=== PATIENT | male | born 1985 | race Caucasian/White ===

== ENCOUNTER 2019-05-28 15:31 | Inpatient (IN) | payer OTHER ==
[2019-05-28 18:07] VITALS: BMI 24.4
--- NOTE | 2019-05-28 19:53 | HP ---
CIWA Score Nausea/Vomitin-No Nausea/No Vomiting Muscle Tremors: 4-Moderate,w/Arms Extend Anxiety: 2 Agitation: 2 Paroxysmal Sweats: 3 (Increased facial moisture) Orientation: 0-Oriented Tacttile Disturbances: 0-None Auditory Disturbances: 0-None Visual Disturbances: 2-Mild Sensitivity Headache: 2-Mild (Frontal) CIWA-Ar Total Score: 15 - Admission Criteria OAS Guidelines: Admission for Medically Managed Detox: Requires at least one of the followin. CIWA greater than 12 2. Seizures within the past 24 hours 3. Delirium tremens within the past 24 hours 4. Hallucinations within the past 24 hours 5. Acute intervention needed for co occurring medical disorder 6. Acute intervention needed for co occurring psychiatric disorder 7. Severe withdrawal that cannot be handled at a lower level of care (continued vomiting, continued diarrhea, abnormal vital signs) requiring intravenous medication and/or fluids 8. Patient presents the following: CIWA greater than 12 Admission Criteria Met: Admission criteria met Admission ROS [facility] Chief Complaint: "Here for detox to get your life together" Allergies/Adverse Reactions: Allergies Allergy/AdvReac Type Severity Reaction Status Date / Time ketorolac [From Toradol] Allergy Severe Rash Verified 05/28/19 17:44 CRAWFISH Allergy Mild Rash Uncoded 05/28/19 17:44 History of Present Illness: 34 yo presents w/ alcohol withdrawal, seeking detox. ARYA: 0.0 UTox: +THC/BZO/BUP Denies sizures, blackouts, overdose. Alcohol use began at age 13. Current use 1-2 pints liquor x 2 years. Heroin use began at age 13. Last relapse 2 months ago. Patient is on Suboxone 8 mg Po TID. Patient states the current prescription for Subutex is as a replacement for lost meds and will be going back on Suboxone. . Marijuana/K-2 use began at age 11. Smokes daily. Nicotine use began at age 11. Smokes 2 PPD. Unable to chew gum. Encouraged smoking cessation upon discharge. PMHx: Denies MHHx: Panic attacks (Stress reduction exercises) ; Bipolar (Takes Seroquel); Denies thoughts of harming self or others. Last saw MH Provider - 05/20/19 SHx: Homeless. Unemployed. (On SSD/SSI). Denies legal issues. Patient Name: Chilango Napier Date: 1985 Address: [address] [place] [address] Sex: Male Rx Written Rx Dispensed Drug Quantity Days Supply Prescriber Name 05/21/2019 05/21/2019 buprenorphine 8 mg tablet sl 21 7 Tara Dias E 05/19/2019 05/19/2019 tramadol hcl 50 mg tablet 15 5 Leonard Mclaughlin 05/16/2019 05/16/2019 buprenorphine-naloxone 8-2 mg sl film 63 21 Ba [place] 05/09/2019 05/09/2019 buprenorphine-naloxone 8-2 mg sl film 21 7 Ba [place] 05/08/2019 05/08/2019 buprenorphine-naloxone 8-2 mg sl film 4 4 Columba Steven H () 04/27/2019 04/30/2019 buprenorphine-naloxone 8-2 mg sl film 9 3 [facility] 04/28/2019 04/28/2019 buprenorphine-naloxone 8-2 mg sl film 9 3 Bari Norris MD 04/10/2019 04/11/2019 buprenorphine-naloxone 8-2 mg sl film 24 8 Leif Almendarez 03/31/2019 04/07/2019 buprenorphine-naloxone 8-2 mg sl film 9 3 John Bennett J 03/29/2019 04/02/2019 buprenorphine-naloxone 8-2 mg sl film 27 9 Leif Almendarez 03/25/2019 03/25/2019 tramadol hcl 50 mg tablet 6 3 Argentina Cao DO 03/21/2019 03/21/2019 buprenorphine-naloxone 8-2 mg sl film 30 10 Leif Almendarez 03/21/2019 03/21/2019 lyrica 75 mg capsule 60 30 Leif Almendarez 03/13/2019 03/14/2019 buprenorphine-naloxone 8-2 mg sl film 24 8 Leif Almendarez 03/06/2019 03/06/2019 buprenorphine-naloxone 8-2 mg sl film 21 7 Leif Almendarez 02/28/2019 02/28/2019 buprenorphine-naloxone 8-2 mg sl tablet 21 7 Leif Almendarez 02/13/2019 02/13/2019 buprenorphine-naloxone 8-2 mg sl film 9 3 Mary Lagunas 01/30/2019 01/30/2019 buprenorphine-naloxone 8-2 mg sl film 24 8 Tanesha Leif 01/30/2019 01/30/2019 lyrica 50 mg capsule 24 8 TaneshaLeif 01/22/2019 01/22/2019 buprenorphine-naloxone 8-2 mg sl film 21 7 Merced Hailey K (HEALTH AND WELLNESS INSTRUCTOR) 01/12/2019 01/12/2019 buprenorphine-naloxone 8-2 mg sl film 30 10 Leif Almendarez 12/29/2018 12/29/2018 buprenorphine-naloxone 8-2 mg sl film 42 14 AlmendarezLeif mendoza 12/15/2018 12/15/2018 buprenorphine-naloxone 8-2 mg sl film 42 14 Leif Almendarez 12/08/2018 12/08/2018 buprenorphine-naloxone 8-2 mg sl film 21 7 AlmendarezLeif 11/30/2018 11/30/2018 buprenorphine-naloxone 8-2 mg sl film 24 8 Leif Almendarez 11/23/2018 11/23/2018 buprenorphine-naloxone 8-2 mg sl film 25 8 Jennifer Cuba HEALTH AND WELLNESS INSTRUCTOR 11/14/2018 11/14/2018 buprenorphine-naloxone 8-2 mg sl film 21 7 Leif Almendarez Patient Name: Chilango Napier Date: 1985 Address: [address] [place] [address] Sex: Male Rx Written Rx Dispensed Drug Quantity Days Supply Prescriber Name 01/11/2019 01/11/2019 [facility] 5-[facility] 01/11/2019 clonazepam 1 mg tablet 14 4 [facility] Patient Name: Chilango Napier Date: 1985 Address: [address] [place] [id number] Sex: Male Rx Written Rx Dispensed Drug Quantity Days Supply Prescriber Name 11/24/2018 11/24/2018 tramadol hcl 50 mg tablet 20 5 Dashawn Broderick Exam Limitations: No Limitations - Ebola screening Have you traveled outside of the country in the last 21 days: No Have you had contact with anyone from an Ebola affected area: No Have you been sick,other than usual withdrawal symptoms: No Do you have a fever: No - Review of Systems Constitutional: Chills, Diaphoresis, Changes in sleep (Difficulty falling asleep ), Weight Stable EENT: reports: Blurred Vision (Distance), Nose Congestion, Dental Problems ( Broken teeth w/ intermitent pain) Respiratory: reports: No Symptoms reported Cardiac: reports: No Symptoms Reported GI: reports: Constipated (Last BM yesterday. Q2-3 days) : reports: No Symptoms Reported Musculoskeletal: reports: No Symptoms Reported Integumentary: reports: No Symptoms Reported Neuro: reports: Headache Endocrine: reports: Increased Thirst Hematology: reports: No Symptoms Reported Psychiatric: reports: Orientated x3, Agitated, Anxious Patient History - PPD History Previous Implant?: Yes Documented Results: Negative w/o proof Implanted On Prior [facility] Admission?: No PPD to be Administered?: Yes - Smoking Cessation Smoking history: Current every day smoker Have you smoked in the past 12 months: Yes Aproximately how many cigarettes per day: 40 Hx Chewing Tobacco Use: No Initiated information on smoking cessation: Yes 'Breaking Loose' booklet given: 05/28/19 - Substance & Tx. History Hx Alcohol Use: Yes Hx Substance Use: Yes Substance Use Type: Alcohol, Marijuana Hx Substance Use Treatment: Yes (detox, rehab, On Suboxone) - Substances abused Alcohol Substance route: Oral Frequency: Daily Amount used: 1 pint of Renaldo napier Age of first use: 13 Date of last use: 05/27/19 Heroin Substance route: Inhalation Frequency: Daily Amount used: 4 bags Age of first use: 20 Date of last use: 01/08/19 Admission Physical Exam BHS - Vital Signs Vital Signs: Vital Signs - 24 hr 05/28/19 18:02 Temperature 98.5 F Pulse Rate 77 Respiratory 16 Rate Blood Pressure 110/55 L - Physical General Appearance: Yes: Nourished, Mild Distress, Tremorous, Irritable, Sweating (Increased facial moisture), Anxious HEENTM: Yes: Normocephalic, Normal Voice, GRICELDA, Pharynx Normal (Mucous membranes dry. Thickened whitish saliva), Nasal Congestion Respiratory: Yes: Lungs Clear (Pulse Ox = 98%), Normal Breath Sounds, No Respiratory Distress Neck: Yes: No masses,lesions,Nodules, Supple Breast: Yes: Breast Exam Deferred Cardiology: Yes: Regular Rhythm, S1, S2, Bradycardia (HR: 58) Abdominal: Yes: Non Tender, Flat, Soft, Increased Bowel Sounds, Hernia (Mid abdominal hernia - soft, reducible) Genitourinary: Yes: Within Normal Limits Back: Yes: Normal Inspection Musculoskeletal: Yes: full range of Motion, Gait Steady Extremities: Yes: Normal Capillary Refill, Tremors Neurological: Yes: threading machine tender II-XII NML intact, Fully Oriented, Alert, Motor Strength 5/5, Normal Response Integumentary: Yes: Normal Color, Warm, Diaphoresis (Increased facial moisture) , Other (Decreased skin turgor) Lymphatic: Yes: Within Normal Limits - Diagnostic (1) Alcohol dependence with withdrawal, uncomplicated Current Visit: Yes Status: Acute (2) Opioid dependence on agonist therapy Current Visit: Yes Status: Acute (3) Poor dentition Current Visit: Yes Status: Acute (4) Abdominal hernia Current Visit: Yes Status: Chronic Qualifiers: Hernia type: unspecified Obstruction and gangrene presence: without obstruction or gangrene Recurrence: recurrent Qualified Code(s): K45.8 - Other specified abdominal hernia without obstruction or gangrene (5) Dehydration Current Visit: Yes Status: Acute (6) Nicotine dependence, cigarettes, with withdrawal Current Visit: Yes Status: Acute (7) Tinea pedis Current Visit: Yes Status: Chronic Qualifiers: Laterality: bilateral Qualified Code(s): B35.3 - Tinea pedis (8) Cannabis dependence, uncomplicated Current Visit: Yes Status: Chronic (9) Bradycardia Current Visit: Yes Status: Acute Comment: NOS Cleared for Admission S - Detox or Rehab [facility] Level of Care: Medically Managed Detox Regimen/Protocol: Librium Claeared for Rehab Admission: No Breathalyzer - Breathalyzer Breathalyzer: 0 Urine Drug Screen - Test Device Lot number: [id number] Expiration date: 01/31/21 - Control Is test valid?: Yes - Results Drug screen NEGATIVE: No Urine drug screen results: THC-Marijuana, BZO-Benzodiazepines, BUP-Suboxone Inpatient Rehab Admission - Rehab Decision to Admit Inpatient rehab admission?: No
[2019-05-28] MEDS ORDERED: MAGNESIUM HYDROX 2400MG/30ML ORAL SUSPENSION 30 ML CUP PO PRN (20:29)
[2019-05-28] MEDS ORDERED: MENTHOL/PHENOL 1 EACH UD MM PRN (20:29)
[2019-05-28] MEDS ORDERED: IBUPROFEN 400 MG TABLET (FP) PO PRN (20:29)
[2019-05-28] MEDS ORDERED: ACETAMINOPHEN 325 MG TABLET (FP) PO PRN ×2 (20:29)
[2019-05-28] MEDS ORDERED: MAGNESIUM CITRATE 300 ML BOTTLE PO PRN (20:29)
[2019-05-28] MEDS ORDERED: chlordiazePOXIDE HCL 25 MG CAPSULE PO ONE (20:29)
[2019-05-28] MEDS ORDERED: BISMUTH SUBSALICYLATE 524 MG/30 ML UD PO PRN (20:29)
[2019-05-28] MEDS ORDERED: chlordiazePOXIDE HCL 25 MG CAPSULE PO PRN (20:29)
[2019-05-28] MEDS ORDERED: BENZOCAINE 20 % GEL TUBE MM PRN (20:36)
[2019-05-28] MEDS ORDERED: QUEtiapine FUMARATE 100 MG TABLET (FP) PO ONE (20:39)
[2019-05-28] MEDS: chlordiazePOXIDE HCL 25 MG CAPSULE PO SCH (22:35)
[2019-05-28] MEDS: BUPRENORPHINE/NALOXONE 8 MG/2 MG FILM PACKET SL SCH (22:35)
[2019-05-28] MEDS: THIAMINE HCL 100 MG TABLET (FP) PO SCH (22:35)
[2019-05-28] MEDS: BACITRACIN 15 GM TUBE TOPICAL OINTMENT TP SCH (22:40)
[2019-05-28] MEDS: TOLNAFTATE 1% CREAM 15 GM TUBE TP SCH (22:40)
[2019-05-28] MEDS: NICOTINE 7 MG/24 HOURS TOPICAL PATCH TD SCH (22:40)
[2019-05-29] MEDS: BUPRENORPHINE/NALOXONE 8 MG/2 MG FILM PACKET SL SCH ×3 (05:32→22:08)
[2019-05-29] MEDS: chlordiazePOXIDE HCL 25 MG CAPSULE PO SCH ×4 (05:32→22:08)
[2019-05-29] MEDS: PRENATAL VITAMINS W/ FOLIC ACID TABLET (FP) PO SCH (09:39)
[2019-05-29] MEDS: BACITRACIN 15 GM TUBE TOPICAL OINTMENT TP SCH ×2 (09:39→22:08)
[2019-05-29] MEDS: NICOTINE 21 MG/24 HOURS TOPICAL PATCH TD SCH (09:39)
[2019-05-29] MEDS: TOLNAFTATE 1% CREAM 15 GM TUBE TP SCH ×2 (09:40→22:08)
[2019-05-29 10:14] LABS: HEMATOCRIT 34.1 % (35.4-49); HEMOGLOBIN 11.5 GM/dL (11.7-16.9); MCH 29.4 pg (25.7-33.7); MCHC 33.7 g/dl (32.0-35.9); MEAN CELL VOLUME 87.3 fl (80-96); PLATELET COUNT 341 K/MM3 (134-434); RBC 3.91 M/mm3 (4.00-5.60); WHITE BLOOD COUNT 7.3 K/mm3 (4.0-10.0)
--- NOTE | 2019-05-29 10:24 | EKG ---
Test Reason : Blood Pressure : / mmHG Vent. Rate : 054 BPM Atrial Rate : 054 BPM P-R Int : 146 ms QRS Dur : 096 ms QT Int : 446 ms P-R-T Axes : -02 067 052 degrees QTc Int : 422 ms SINUS BRADYCARDIA OTHERWISE NORMAL ECG NO PREVIOUS ECGS AVAILABLE Confirmed by MD Warner, Tip ([id number]) on 05/29/2019 10:23:56 AM Referred By: Confirmed By:Tip Hylton MD
[2019-05-29 10:36] LABS: ALBUMIN 2.9 g/dl (3.4-5.0); BILIRUBIN,TOTAL 0.5 mg/dL (0.2-1); BLOOD UREA NITROGEN 14.7 mg/dL (7-18); CALCIUM 8.3 mg/dL (8.5-10.1); CREATININE 0.8 mg/dL (0.55-1.3); TOT PROT 5.7 g/dl (6.4-8.2)
--- NOTE | 2019-05-29 14:07 | PN ---
S CIWA - CIWA Score Nausea/Vomitin-Mild Nausea/No Vomiting Muscle Tremors: 4-Moderate,w/Arms Extend Anxiety: 3 Agitation: 2 Paroxysmal Sweats: 1-Minimal Palms Moist Orientation: 0-Oriented Tacttile Disturbances: 1-Very Mild Itch/Numbness Auditory Disturbances: 1-Very Mild Visual Disturbances: 0-None Headache: 1-Very Mild CIWA-Ar Total Score: 14 BHS Progress Note (SOAP) Subjective: 34 years old male admitted on 05/28/19 for alcohol withdrawal sx management treated with librium detox regimen patient tolerated well feeling tired resting on bed prefers to stay in bed today limited conversation with staff Objective: 05/29/19 14:06 Vital Signs Temperature 97.0 F L 05/29/19 13:15 Pulse Rate 70 05/29/19 13:15 Respiratory Rate 18 05/29/19 13:15 Blood Pressure 105/67 05/29/19 13:15 O2 Sat by Pulse Oximetry (%) Laboratory Last Values WBC 7.3 K/mm3 (4.0-10.0) 05/29/19 07:45 RBC 3.91 M/mm3 (4.00-5.60) L 05/29/19 07:45 Hgb 11.5 GM/dL (11.7-16.9) L 05/29/19 07:45 Hct 34.1 % (35.4-49) L 05/29/19 07:45 MCV 87.3 fl (80-96) 05/29/19 07:45 MCH 29.4 pg (25.7-33.7) 05/29/19 07:45 MCHC 33.7 g/dl (32.0-35.9) 05/29/19 07:45 RDW 16.0 % (11.9-15.9) H 05/29/19 07:45 Plt Count 341 K/MM3 (134-434) 05/29/19 07:45 MPV 8.0 fl (7.5-11.1) 05/29/19 07:45 Sodium 141 mmol/L (136-145) 05/29/19 07:45 Potassium 4.0 mmol/L (3.5-5.1) 05/29/19 07:45 Chloride 110 mmol/L (98-107) H 05/29/19 07:45 Carbon Dioxide 29 mmol/L (21-32) 05/29/19 07:45 Anion Gap 3 MMOL/L (8-16) L 05/29/19 07:45 BUN 14.7 mg/dL (7-18) 05/29/19 07:45 Creatinine 0.8 mg/dL (0.55-1.3) 05/29/19 07:45 Est GFR (CKD-EPI)AfAm 133.20 05/29/19 07:45 Est GFR (CKD-EPI)NonAf 114.93 05/29/19 07:45 Random Glucose 77 mg/dL (74-106) 05/29/19 07:45 Calcium 8.3 mg/dL (8.5-10.1) L 05/29/19 07:45 Total Bilirubin 0.5 mg/dL (0.2-1) 05/29/19 07:45 AST 21 U/L (15-37) 05/29/19 07:45 ALT 27 U/L (13-61) 05/29/19 07:45 Alkaline Phosphatase 76 U/L (45-117) 05/29/19 07:45 Total Protein 5.7 g/dl (6.4-8.2) L 05/29/19 07:45 Albumin 2.9 g/dl (3.4-5.0) L 05/29/19 07:45 RPR Titer Nonreactive (NONREACTIVE) 05/29/19 07:45 lab noted Assessment: 05/29/19 14:06 alcohol withdrawal sx Plan: continue librium detox regimen
--- NOTE | 2019-05-29 15:38 | CONSULT ---
[facility] Psychiatric Consult - Data Date of interview: 05/29/19 Admission source: [facility] Identifying data: Patient refused psychiatric evaluation. Mr Espinal, when approached by psychiatrist, declared : " I don't want to talk to psychiatrists. " Nursing staff is made aware.
[2019-05-29] MEDS: CEPHALEXIN MONOHYDRATE 500 MG CAPSULE (UD) PO SCH ×2 (16:45→22:09)
--- NOTE | 2019-05-29 18:47 | PN ---
[facility] Progress Note Note: Psychitry Attending's note : Patient has approached nursing staff for seroquel at bedtime. Mr Espinal had declined psychiatric interview during daytime. Christian Science Practitioner met with the patient at bedside. " I am diagnosed with bipolar disorder and I get 300 mg of seroquel at night." Not able to verify this claim. Noted order for 100 mg hs of seroquel (05/28/19). No report of adverse effects. Patient is reminded of side effects/benefits of the medication : sedation, falls, metabolic syndrome, abnormal movements and cardiovascular adverse events. " I never have any problem with seroquel." Mr Espinal gave verbal consent to MD. Intervention : Seroquel 100 mg po hs. Ordered. Psychiatric re-consult in the morning (upon request). Patient agrees. Addendum : Christian Science Practitioner spoke to pharmacist at [facility] ([phone]). Finding : NO seroquel has been been prescribed to this patient. As per pharmacist, ONLY suboxone. Order for seroquel is cancelled by movie writer.
[2019-05-29] MEDS ORDERED: QUEtiapine FUMARATE 100 MG TABLET (FP) PO SCH (22:00)
[2019-05-29] MEDS: THIAMINE HCL 100 MG TABLET (FP) PO SCH (22:08)
[2019-05-29] MEDS: NICOTINE 7 MG/24 HOURS TOPICAL PATCH TD SCH (22:08)
[2019-05-29] MEDS: MELATONIN 5 MG TABLETS PO PRN (23:12)
[2019-05-30] MEDS: chlordiazePOXIDE HCL 25 MG CAPSULE PO SCH ×2 (05:36→10:19)
[2019-05-30] MEDS: CEPHALEXIN MONOHYDRATE 500 MG CAPSULE (UD) PO SCH ×4 (05:36→23:43)
[2019-05-30] MEDS: BUPRENORPHINE/NALOXONE 8 MG/2 MG FILM PACKET SL SCH ×3 (05:36→22:08)
[2019-05-30] MEDS ORDERED: GABAPENTIN 300 MG CAPSULE (FP) PO SCH ×2 (10:02→22:00)
--- NOTE | 2019-05-30 10:08 | PN ---
S CIWA - CIWA Score Nausea/Vomitin-Mild Nausea/No Vomiting Muscle Tremors: 2 Anxiety: 4-Mod. Anxious/Guarded Agitation: 2 Paroxysmal Sweats: 2 Orientation: 0-Oriented Tacttile Disturbances: 1-Very Mild Itch/Numbness Auditory Disturbances: 1-Very Mild Visual Disturbances: 0-None Headache: 0-None Present CIWA-Ar Total Score: 13 BHS Progress Note (SOAP) Subjective: 34 years old male admitted on 05/28/19 for alcohol withdrawal sxs management treated with librium detox regimen patient reported that he is taking neurontin at home by his primary care provider and helps him self control hand sign writer called preferred pharmacy [phone] no record of neurontin begin neurontin 300 mg po tid instead as per patient stated 800mg po qid patient stated that he is taking seroquel for self control Objective: 05/30/19 10:07 Vital Signs Temperature 98.0 F 05/30/19 09:12 Pulse Rate 76 05/30/19 09:12 Respiratory Rate 18 05/30/19 09:12 Blood Pressure 138/87 05/30/19 09:12 O2 Sat by Pulse Oximetry (%) Laboratory Last Values WBC 7.3 K/mm3 (4.0-10.0) 05/29/19 07:45 RBC 3.91 M/mm3 (4.00-5.60) L 05/29/19 07:45 Hgb 11.5 GM/dL (11.7-16.9) L 05/29/19 07:45 Hct 34.1 % (35.4-49) L 05/29/19 07:45 MCV 87.3 fl (80-96) 05/29/19 07:45 MCH 29.4 pg (25.7-33.7) 05/29/19 07:45 MCHC 33.7 g/dl (32.0-35.9) 05/29/19 07:45 RDW 16.0 % (11.9-15.9) H 05/29/19 07:45 Plt Count 341 K/MM3 (134-434) 05/29/19 07:45 MPV 8.0 fl (7.5-11.1) 05/29/19 07:45 Sodium 141 mmol/L (136-145) 05/29/19 07:45 Potassium 4.0 mmol/L (3.5-5.1) 05/29/19 07:45 Chloride 110 mmol/L (98-107) H 05/29/19 07:45 Carbon Dioxide 29 mmol/L (21-32) 05/29/19 07:45 Anion Gap 3 MMOL/L (8-16) L 05/29/19 07:45 BUN 14.7 mg/dL (7-18) 05/29/19 07:45 Creatinine 0.8 mg/dL (0.55-1.3) 05/29/19 07:45 Est GFR (CKD-EPI)AfAm 133.20 05/29/19 07:45 Est GFR (CKD-EPI)NonAf 114.93 05/29/19 07:45 Random Glucose 77 mg/dL (74-106) 05/29/19 07:45 Calcium 8.3 mg/dL (8.5-10.1) L 05/29/19 07:45 Total Bilirubin 0.5 mg/dL (0.2-1) 05/29/19 07:45 AST 21 U/L (15-37) 05/29/19 07:45 ALT 27 U/L (13-61) 05/29/19 07:45 Alkaline Phosphatase 76 U/L (45-117) 05/29/19 07:45 Total Protein 5.7 g/dl (6.4-8.2) L 05/29/19 07:45 Albumin 2.9 g/dl (3.4-5.0) L 05/29/19 07:45 RPR Titer Nonreactive (NONREACTIVE) 05/29/19 07:45 lab noted Assessment: 05/30/19 10:08 alcohol withdrawal sx 05/30/19 10:08 psychiatric referral Plan: continue librium detox regimen
[2019-05-30 10:20] LABS: PH,URINE 7.5 (5.0-8.0); URINE APPEARANCE CLEAR; URINE BILIRUBIN NEGATIVE (NEGATIVE); URINE COLOR YELLOW; URINE GLUCOSE (UA) NEGATIVE (NEGATIVE); URINE KETONE NEGATIVE (NEGATIVE); URINE LEUK ESTERASE NEGATIVE (NEGATIVE); URINE NITRITE NEGATIVE (NEGATIVE); URINE PROTEIN NEGATIVE (NEGATIVE); URINE UROBILINOGEN 0.2 mg/dL (0.2-1.0)
[2019-05-30] MEDS: TOLNAFTATE 1% CREAM 15 GM TUBE TP SCH ×2 (10:20→22:10)
[2019-05-30] MEDS: BACITRACIN 15 GM TUBE TOPICAL OINTMENT TP SCH ×2 (10:20→22:10)
[2019-05-30] MEDS: NICOTINE 21 MG/24 HOURS TOPICAL PATCH TD SCH (10:20)
[2019-05-30] MEDS: PRENATAL VITAMINS W/ FOLIC ACID TABLET (FP) PO SCH (10:20)
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
[2019-05-30] MEDS ORDERED: QUEtiapine FUMARATE 50 MG TABLET PO ONE (11:43)
[2019-05-30] MEDS ORDERED: LORazepam 0.5 MG TABLET PO ONE (12:59)
[2019-05-30] MEDS ORDERED: LORazepam 1 MG TABLET PO PRN (13:05)
[2019-05-30] MEDS ORDERED: GABAPENTIN 300 MG CAPSULE (FP) PO ONE (14:10)
[2019-05-30] MEDS: LORazepam 0.5 MG TABLET PO SCH ×2 (17:04→23:43)
[2019-05-30] MEDS: GABAPENTIN 300 MG CAPSULE (FP) PO SCH (22:08)
[2019-05-30] MEDS: THIAMINE HCL 100 MG TABLET (FP) PO SCH (22:08)
[2019-05-30] MEDS: QUEtiapine FUMARATE 50 MG TABLET PO SCH (22:08)
[2019-05-30] MEDS: NICOTINE 7 MG/24 HOURS TOPICAL PATCH TD SCH (22:09)
[2019-05-30] MEDS ORDERED: P-EPHED 60MG/TRIPROLIDI 2.5MG TABLET PO PRN (23:29)
--- NOTE | 2019-05-30 23:31 | PN ---
[facility] Progress Note Note: Patient complained of nasal congestion. Denies SOB and respiratory distress at this time Vital Signs Temperature 96.9 F L 05/30/19 19:39 Pulse Rate 91 H 05/30/19 19:39 Respiratory Rate 18 05/30/19 19:39 Blood Pressure 118/63 05/30/19 19:39 O2 Sat by Pulse Oximetry (%) Action:P-Ephed 60mg/Triprolidi 2.5mg ( Actifed ) 1 combo oral Q6H prn x 3 days ordered
[2019-05-31] MEDS ORDERED: chlordiazePOXIDE HCL 10 MG CAPSULE PO PRN
[2019-05-31] MEDS ORDERED: LORazepam 0.5 MG TABLET PO PRN (00:01)
[2019-05-31] MEDS ORDERED: chlordiazePOXIDE HCL 10 MG CAPSULE PO SCH (05:00)
[2019-05-31] MEDS: BUPRENORPHINE/NALOXONE 8 MG/2 MG FILM PACKET SL SCH ×3 (05:42→22:11)
[2019-05-31] MEDS: LORazepam 0.5 MG TABLET PO SCH ×3 (05:43→22:11)
[2019-05-31] MEDS: CEPHALEXIN MONOHYDRATE 500 MG CAPSULE (UD) PO SCH ×4 (05:43→23:26)
[2019-05-31] MEDS: GABAPENTIN 300 MG CAPSULE (FP) PO SCH ×2 (10:07→22:10)
[2019-05-31] MEDS: PRENATAL VITAMINS W/ FOLIC ACID TABLET (FP) PO SCH (10:07)
[2019-05-31] MEDS: NICOTINE 21 MG/24 HOURS TOPICAL PATCH TD SCH (10:08)
[2019-05-31] MEDS: BACITRACIN 15 GM TUBE TOPICAL OINTMENT TP SCH ×2 (10:08→22:10)
[2019-05-31] MEDS: TOLNAFTATE 1% CREAM 15 GM TUBE TP SCH ×2 (10:08→22:09)
--- NOTE | 2019-05-31 10:53 | PN ---
S CIWA - CIWA Score Nausea/Vomitin-Int. Nausea w/Dry Heave Muscle Tremors: 2 Anxiety: 2 Agitation: 1-Slight > Activity Paroxysmal Sweats: 2 Orientation: 0-Oriented Tacttile Disturbances: 2-Mild Itch/Numbness/Burn Auditory Disturbances: 0-None Visual Disturbances: 0-None Headache: 0-None Present CIWA-Ar Total Score: 13 BHS Progress Note (SOAP) Subjective: interrupted sleep, sweats, nausea, vomiting , not eatting well Objective: 05/31/19 10:50 Vital Signs Temperature 96.8 F L 05/31/19 09:04 Pulse Rate 127 H 05/31/19 09:04 Respiratory Rate 20 05/31/19 09:04 Blood Pressure 145/85 05/31/19 09:04 O2 Sat by Pulse Oximetry (%) Laboratory Tests 05/29/19 05/29/19 05/29/19 07:45 07:45 07:45 WBC 7.3 RBC 3.91 L Hgb 11.5 L Hct 34.1 L MCV 87.3 MCH 29.4 MCHC 33.7 RDW 16.0 H Plt Count 341 MPV 8.0 Sodium 141 Potassium 4.0 Chloride 110 H Carbon Dioxide 29 Anion Gap 3 L BUN 14.7 Creatinine 0.8 Est GFR (CKD-EPI)AfAm 133.20 Est GFR (CKD-EPI)NonAf 114.93 Random Glucose 77 Calcium 8.3 L Total Bilirubin 0.5 AST 21 ALT 27 Alkaline Phosphatase 76 Total Protein 5.7 L Albumin 2.9 L Urine Color Urine Appearance Urine pH Ur Specific [place] Urine Protein Urine Glucose (UA) Urine Ketones Urine Blood Urine Nitrite Urine Bilirubin Urine Urobilinogen Ur Leukocyte Esterase RPR Titer Nonreactive 05/30/19 08:00 WBC RBC Hgb Hct MCV MCH MCHC RDW Plt Count MPV Sodium Potassium Chloride Carbon Dioxide Anion Gap BUN Creatinine Est GFR (CKD-EPI)AfAm Est GFR (CKD-EPI)NonAf Random Glucose Calcium Total Bilirubin AST ALT Alkaline Phosphatase Total Protein Albumin Urine Color Yellow Urine Appearance Clear Urine pH 7.5 Ur Specific [place] 1.009 L Urine Protein Negative Urine Glucose (UA) Negative Urine Ketones Negative Urine Blood Negative Urine Nitrite Negative Urine Bilirubin Negative Urine Urobilinogen 0.2 Ur Leukocyte Esterase Negative RPR Titer pt aox3 lying in bed in nad Assessment: 05/31/19 11:35 withdrawal sx's s/p cva neuropathy 05/31/19 11:36 05/31/19 11:38 Plan: cont. detox increase fluids motrin prn for pain cont ensure bid
[2019-05-31] MEDS: QUEtiapine FUMARATE 50 MG TABLET PO SCH ×2 (12:17→22:10)
[2019-05-31 13:49] LABS: URINE APPEARANCE CLEAR; URINE BILIRUBIN NEGATIVE (NEGATIVE); URINE COLOR YELLOW; URINE GLUCOSE (UA) NEGATIVE (NEGATIVE); URINE KETONE NEGATIVE (NEGATIVE); URINE LEUK ESTERASE NEGATIVE (NEGATIVE); URINE NITRITE NEGATIVE (NEGATIVE); URINE PROTEIN NEGATIVE (NEGATIVE); URINE UROBILINOGEN 0.2 mg/dL (0.2-1.0)
[2019-05-31] MEDS: THIAMINE HCL 100 MG TABLET (FP) PO SCH (22:09)
[2019-05-31] MEDS: MELATONIN 5 MG TABLETS PO PRN (22:10)
[2019-05-31] MEDS: METHOCARBAMOL 500 MG TABLET PO PRN (22:11)
[2019-05-31] MEDS: MAG HYDROX/AL HYDROX/SIMETH 30 ML UNIT-DOSE CUP PO PRN (23:17)
[2019-05-31] MEDS ORDERED: ASPIRIN 81 MG CHEWABLE TABLETS PO ONE (23:49)
[2019-06-01] MEDS ORDERED: LORazepam 0.5 MG TABLET PO PRN (00:05)
--- NOTE | 2019-06-01 00:17 | PN ---
[facility] Progress Note Note: Received a call from Ms. Mckay Kahn RN that patient's heart rate is HR 135. Patient was seen and examined at bedside. He has been tachycardic since 05/30/2019 from 13.37. He denies chest pain or discomfort at this time. Vital Signs Temperature 98.6 F 05/31/19 21:56 Pulse Rate 135 H 05/31/19 21:56 Respiratory Rate 16 05/31/19 21:56 Blood Pressure 122/78 05/31/19 21:56 O2 Sat by Pulse Oximetry (%) Action: EKG stat - Sinus Tachycardia. Possible left atrial enlargement. Borderline FCG Aspirin 81mg tablet oral Monitor blood pressure readings
[2019-06-01] MEDS ORDERED: chlordiazePOXIDE HCL 10 MG CAPSULE PO SCH (05:00)
[2019-06-01] MEDS ORDERED: LORazepam 0.5 MG TABLET PO SCH (05:00)
[2019-06-01] MEDS: BUPRENORPHINE/NALOXONE 8 MG/2 MG FILM PACKET SL SCH ×2 (06:05→14:03)
[2019-06-01] MEDS: CEPHALEXIN MONOHYDRATE 500 MG CAPSULE (UD) PO SCH ×2 (06:05→12:23)
[2019-06-01] MEDS: METHOCARBAMOL 500 MG TABLET PO PRN (06:07)
[2019-06-01] MEDS: PRENATAL VITAMINS W/ FOLIC ACID TABLET (FP) PO SCH (09:16)
[2019-06-01] MEDS: QUEtiapine FUMARATE 50 MG TABLET PO SCH (09:16)
[2019-06-01] MEDS: NICOTINE 21 MG/24 HOURS TOPICAL PATCH TD SCH (09:16)
[2019-06-01] MEDS: BACITRACIN 15 GM TUBE TOPICAL OINTMENT TP SCH (09:16)
[2019-06-01] MEDS: GABAPENTIN 300 MG CAPSULE (FP) PO SCH (09:16)
[2019-06-01] MEDS: TOLNAFTATE 1% CREAM 15 GM TUBE TP SCH (09:16)
[2019-06-01 09:18] VITALS: TEMP 97.1
[2019-06-01] MEDS: MAG HYDROX/AL HYDROX/SIMETH 30 ML UNIT-DOSE CUP PO PRN (09:18)
[2019-06-01] MEDS ORDERED: ONDANSETRON *ODT* 4 MG TABLET SL ONE (09:39)
[2019-06-01 12:38] VITALS: BP 115/82; PULSE 103
--- NOTE | 2019-06-01 13:50 | DS ---
[facility] Detox Discharge Summary Admission Date: 05/28/19 - History Present History: Alcohol Dependence Additional Comments: buprenorphine - Physical Exam Results Vital Signs: Vital Signs Temperature 97.1 F L 06/01/19 12:38 Pulse Rate 103 H 06/01/19 12:38 Respiratory Rate 18 06/01/19 12:38 Blood Pressure 115/82 06/01/19 12:38 O2 Sat by Pulse Oximetry (%) - Treatment Hospital Course: Detox Protocol Followed - Medication Discharge Medications: Ambulatory Orders Buprenorphine/Naloxone [Suboxone 8Mg/2Mg Sl Film -] 1 strip SL TID 05/28/19 - Diagnosis (1) Alcohol dependence with withdrawal, uncomplicated Current Visit: Yes Status: Chronic (2) Cannabis dependence, uncomplicated Current Visit: Yes Status: Chronic (3) History of bipolar disorder Current Visit: Yes Status: Chronic (4) History of posttraumatic stress disorder (PTSD) Current Visit: Yes Status: Chronic (5) Nicotine dependence, cigarettes, with withdrawal Current Visit: Yes Status: Chronic (6) Opioid dependence on agonist therapy Current Visit: Yes Status: Chronic - AMA Did Patient Leave Against Medical Advice: No (involuntary discharge- threathening staff)
--- NOTE | 2019-06-01 14:08 | EKG ---
Test Reason : Blood Pressure : / mmHG Vent. Rate : 098 BPM Atrial Rate : 098 BPM P-R Int : 180 ms QRS Dur : 096 ms QT Int : 336 ms P-R-T Axes : 050 067 046 degrees QTc Int : 428 ms NORMAL SINUS RHYTHM NORMAL ECG WHEN COMPARED WITH ECG OF 28-MAY-2019 21:51, VENT. RATE HAS INCREASED BY 44 BPM Confirmed by BECKIE DIAZ MD ([id number]) on 06/01/2019 2:07:35 PM Referred By: Yoselin MITCHELL Confirmed By:BECKIE DIAZ MD
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
--- NOTE | 2019-06-01 14:31 | PN ---
[facility] Progress Note Note: Psychiatry Attending's note : Approached by patient. Complaint : " I want more buprenorphine." Mr Espinal is also requesting more lorazepam. Patient is redirected. He declares that he has decided to leave this program. Marine Service Manager attempted to explore his reasons. " I don't get what I need in this place ". Mr Espinal made a request for prescription of ativan. Request denied. Patient got upset. Racial slurs. " I will never accept to be seen by a n... doctor again ". Slammed door and stormed out office. Patient is medication-seeking and manipulative. There is no clinical evidence of psychosis or nataly. Conversation was normal until MD indicated to the patient that no script for lorazepam will be issued. Then, he became argumentative and adversarial. " I am going back to my skilled nursing. F... you. " Attempts made by staff to negotiate with patient. He is encouraged to stay in treatment. Rehabilitation offered. Mr Espinal refused. He also declined scripts for seroquel + wellbutrin (just started). Dismissed referrals for aftercare. Patient is alert, fully oriented. Cognitively intact. No evidence of a delirium. Not in withdrawal. Was scheduled for discharge tomorrow. " I am leaving now. I don't need your services. I'll get my benzo elsewhere. I can take care of myself. I'll get my suboxone from my doctor ". This behavior is not caused by psychosis or nataly; this patient is presenting with the hallmarks of a character disorder (antisocial/borderline): inability to delay gratification, manipulative behavior, splitting, inappropriate anger, disdain for established/guidelines and authority figures. Patient is at his baseline. Has consistently denied suicidal/homicidal intent or plan since his admission. Has capacity to make own decisions. Mr Espinal DOES NOT meet criteria for transfer to / involuntary commitment to a psychiatric institution for inpatient care. Psychiatrically stable. Marine Service Manager contacted [facility] ([phone]) : no scripts for quetiapine or gabapentin on file. Was NOT on these drugs prior to [facility] visit. Case discussed with medical attending, Dr Aguilar. Refer to his notes for details.
[2019-06-02] MEDS ORDERED: chlordiazePOXIDE HCL 10 MG CAPSULE PO ONE (05:00)
[2019-06-02] MEDS ORDERED: LORazepam 0.5 MG TABLET PO ONE (05:00)
--- NOTE | 2019-06-04 12:02 | EKG ---
Test Reason : Blood Pressure : / mmHG Vent. Rate : 107 BPM Atrial Rate : 107 BPM P-R Int : 180 ms QRS Dur : 102 ms QT Int : 344 ms P-R-T Axes : 050 070 042 degrees QTc Int : 459 ms SINUS TACHYCARDIA POSSIBLE LEFT ATRIAL ENLARGEMENT BORDERLINE ECG WHEN COMPARED WITH ECG OF 31-MAY-2019 11:24, NO SIGNIFICANT CHANGE WAS FOUND Confirmed by TAWNY BLUE MD ([id number]) on 06/04/2019 12:02:36 PM Referred By: Confirmed By:TAWNY BLUE MD
== END 2019-06-01 14:12 | disposition left against medical advice (07) | DRG 897 ==
LOC: YASAS 15:31 → Y3N 20:36
PROVIDERS: ADMIT Allergy & Immunology; ATTEND Allergy & Immunology
PROC: HZ2ZZZZ Detoxification Services for Substance Abuse Treatment (ICD-10-PCS; principal; 2019-05-28)
DX: F10.230 Alcohol dependence with withdrawal, uncomplicated (principal); F11.20 Opioid dependence, uncomplicated; F12.20 Cannabis dependence, uncomplicated; F17.213 Nicotine dependence, cigarettes, with withdrawal; F31.9 Bipolar disorder, unspecified; F41.0 Panic disorder [episodic paroxysmal anxiety]; F43.10 Post-traumatic stress disorder, unspecified; F19.24 Other psychoactive substance dependence with psychoactive substance-induced mood disorder; R00.0 Tachycardia, unspecified; G47.00 Insomnia, unspecified; I10 Essential (primary) hypertension; R60.0 Localized edema; K08.9 Disorder of teeth and supporting structures, unspecified; K45.8 Other specified abdominal hernia without obstruction or gangrene; E86.0 Dehydration; B35.3 Tinea pedis; R00.1 Bradycardia, unspecified; Z88.8 Allergy status to other drugs, medicaments and biological substances; Z91.013 Allergy to seafood
CPT/HCPCS: 36415; 80053; 81003; 85027; 86593; 87086; 93005; 93010; Q0162

== ENCOUNTER 2019-06-06 15:09 | Inpatient (IN) | payer OTHER ==
[2019-06-06 16:41] VITALS: BMI 24.0
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
[2019-06-06] MEDS ORDERED: MAG HYDROX/AL HYDROX/SIMETH 30 ML UNIT-DOSE CUP PO PRN (18:06)
[2019-06-06] MEDS ORDERED: ACETAMINOPHEN 325 MG TABLET (FP) PO PRN ×2 (18:06)
[2019-06-06] MEDS ORDERED: QUEtiapine FUMARATE 100 MG TABLET (FP) PO PRN (18:06)
[2019-06-06] MEDS ORDERED: MAGNESIUM HYDROX 2400MG/30ML ORAL SUSPENSION 30 ML CUP PO PRN (18:06)
[2019-06-06] MEDS ORDERED: MAGNESIUM CITRATE 300 ML BOTTLE PO PRN (18:06)
[2019-06-06] MEDS ORDERED: IBUPROFEN 400 MG TABLET (FP) PO PRN (18:06)
[2019-06-06] MEDS ORDERED: BISMUTH SUBSALICYLATE 524 MG/30 ML UD PO PRN (18:06)
[2019-06-06] MEDS ORDERED: MENTHOL/PHENOL 1 EACH UD MM PRN (18:06)
[2019-06-06] MEDS ORDERED: NICOTINE POLACRILEX 2 MG GUM BUC PRN (18:06)
[2019-06-06] MEDS ORDERED: diazePAM 5 MG TABLET PO ONE (19:00)
[2019-06-06] MEDS: BUPRENORPHINE/NALOXONE 8 MG/2 MG FILM PACKET SL SCH (22:17)
[2019-06-06] MEDS: diazePAM 5 MG TABLET PO SCH (22:17)
[2019-06-06] MEDS: MELATONIN 5 MG TABLETS PO PRN (22:17)
[2019-06-06] MEDS: THIAMINE HCL 100 MG TABLET (FP) PO SCH (22:17)
[2019-06-07] MEDS: BUPRENORPHINE/NALOXONE 8 MG/2 MG FILM PACKET SL SCH ×3 (05:51→21:51)
[2019-06-07] MEDS: diazePAM 5 MG TABLET PO SCH ×3 (05:51→21:51)
[2019-06-07] MEDS: NICOTINE 21 MG/24 HOURS TOPICAL PATCH TD SCH (10:45)
[2019-06-07] MEDS: PRENATAL VITAMINS W/ FOLIC ACID TABLET (FP) PO SCH (10:45)
[2019-06-07] MEDS: diazePAM 5 MG TABLET PO PRN ×3 (10:47→23:53)
--- NOTE | 2019-06-07 11:15 | PN ---
S CIWA - CIWA Score Nausea/Vomitin-Mild Nausea/No Vomiting Muscle Tremors: 3 Anxiety: 1-Mildly Anxious Agitation: 1-Slight > Activity Paroxysmal Sweats: 2 Orientation: 1-Uncertain about Date (date of week) Tacttile Disturbances: 1-Very Mild Itch/Numbness Auditory Disturbances: 0-None Visual Disturbances: 0-None Headache: 1-Very Mild CIWA-Ar Total Score: 11 BHS Progress Note (SOAP) Subjective: 34 years old male admitted on 06/06/19 for alcohol withdrawal sx management treated with valium detox regimen received suboxone 8-2 mg sl today feeling better resting on bed limited conversation with staff Objective: 06/07/19 11:15 Vital Signs Temperature 96.9 F L 06/07/19 09:10 Pulse Rate 58 L 06/07/19 09:10 Respiratory Rate 18 06/07/19 09:10 Blood Pressure 90/56 L 06/07/19 09:10 O2 Sat by Pulse Oximetry (%) 06/07/19 11:16 lab see 05/29/19 report Assessment: 06/07/19 11:16 alcohol withdrawal sx Plan: continue valium detox regimen
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
[2019-06-07] MEDS: THIAMINE HCL 100 MG TABLET (FP) PO SCH (21:51)
[2019-06-07] MEDS: MELATONIN 5 MG TABLETS PO PRN (21:52)
[2019-06-07] MEDS ORDERED: QUEtiapine FUMARATE 50 MG TABLET PO SCH (22:00)
[2019-06-08] MEDS: hydrOXYzine PAMOATE 25 MG CAPSULE (FP) PO PRN (01:25)
[2019-06-08] MEDS: diazePAM 5 MG TABLET PO SCH ×2 (06:15→17:35)
[2019-06-08] MEDS: BUPRENORPHINE/NALOXONE 8 MG/2 MG FILM PACKET SL SCH ×3 (06:15→22:04)
[2019-06-08] MEDS: diazePAM 5 MG TABLET PO PRN ×3 (08:46→20:34)
[2019-06-08] MEDS ORDERED: QUEtiapine FUMARATE 25 MG TABLET (FP) PO SCH (10:00)
[2019-06-08] MEDS: PRENATAL VITAMINS W/ FOLIC ACID TABLET (FP) PO SCH (10:46)
[2019-06-08] MEDS: NICOTINE 21 MG/24 HOURS TOPICAL PATCH TD SCH (10:49)
[2019-06-08] MEDS ORDERED: ALBUTEROL SO4 0.083% IH SOL 2.5 MG/3 ML VIAL.NEB. NEB PRN (10:58)
--- NOTE | 2019-06-08 11:00 | PN ---
[facility] CIWA - CIWA Score Nausea/Vomitin Muscle Tremors: 2 Anxiety: 2 Agitation: 2 Paroxysmal Sweats: 2 Orientation: 0-Oriented Tacttile Disturbances: 1-Very Mild Itch/Numbness Auditory Disturbances: 0-None Visual Disturbances: 1-Very Mild Sensitivity Headache: 0-None Present CIWA-Ar Total Score: 13 [facility] Progress Note (SOAP) Subjective: Patient with hx of alcohol use disorder is here for withdrawal sx c/o anxious, poor appetite, headaches, nausea and vomiting Objective: 06/08/19 16:37 Vital Signs Temperature 97.2 F L 06/08/19 14:33 Pulse Rate 73 06/08/19 14:33 Respiratory Rate 18 06/08/19 14:33 Blood Pressure 110/73 06/08/19 14:33 O2 Sat by Pulse Oximetry (%) Patient labs from May admission stable Assessment: 06/08/19 16:39 Aox3 no acute distress, anxious + cough + mild Left lower lobe wheezing EENT WNL full ROM gait disturbance ambulating in the unit withdrawal Plan: increase po fluids neb tx prn for wheezing continue detox continue to monitor
--- NOTE | 2019-06-08 16:49 | PN ---
[facility] Progress Note Note: Psychiatry Attending's note : Approached by patient. Reason : seroquel not effective at 150 mg/hs. " I used to be on 300 mg at night and some during the day ". Mr Espinal complains of feeling tense, jittery and dysphoric. Continues to presents with complaint of refractory insomnia. Intervention : . Principles of sleep hygiene are discussed. . Side effects/benefits of seroquel : discussed with the patient. . Dose of seroquel is optimized : seroquel 250 mg po hs. Ordered. . Patient is in agreement with this plan (consents to waive daytime dose). . Verbal consent provided to
[2019-06-08] MEDS ORDERED: QUEtiapine FUMARATE 100 MG TABLET (FP) PO SCH (22:00)
[2019-06-08] MEDS ORDERED: QUETIAPINE FUMARATE 200 MG, QUETIAPINE FUMARATE 50 MG PO SCH (22:00)
[2019-06-08] MEDS: QUEtiapine FUMARATE 200 MG TABLET PO SCH (22:03)
[2019-06-09] MEDS ORDERED: diazePAM 5 MG TABLET PO ONE (06:00)
[2019-06-09] MEDS: BUPRENORPHINE/NALOXONE 8 MG/2 MG FILM PACKET SL SCH ×3 (06:06→22:22)
[2019-06-09] MEDS: NICOTINE 21 MG/24 HOURS TOPICAL PATCH TD SCH (10:19)
[2019-06-09] MEDS: PRENATAL VITAMINS W/ FOLIC ACID TABLET (FP) PO SCH (10:20)
--- NOTE | 2019-06-09 12:50 | PN ---
S Progress Note Note: Pt has completed his detox protocol today. Unable to get pt into a rehab during the weekend. Pt is on suboxone tx and states he does not have any refills. Will keep pt till tuesday to for rehab acceptance/relapse avoidance. Case discussed with Leatha Parra, Clinical suppervisor. Pt is alert and oriented x3 and in no respiratory distress.
[2019-06-09] MEDS: hydrOXYzine PAMOATE 25 MG CAPSULE (FP) PO PRN (16:48)
[2019-06-09] MEDS: LIDOCAINE 5% TOPICAL PATCH TP SCH (22:21)
[2019-06-09] MEDS: METHOCARBAMOL 500 MG TABLET PO PRN (22:21)
[2019-06-09] MEDS: QUEtiapine FUMARATE 200 MG TABLET PO SCH (22:21)
[2019-06-09] MEDS: MELATONIN 5 MG TABLETS PO PRN (22:22)
[2019-06-09] MEDS: CEPHALEXIN MONOHYDRATE 500 MG CAPSULE (UD) PO SCH (23:03)
--- NOTE | 2019-06-10 02:47 | PN ---
S Progress Note Note: S/CC: c/o mass and pain in left hip area. Pain is sharp when palpated and a "7". Patient states was seen in [facility] ED 3 weeks ago after sustaining trauma to hip from a fall to ground. Patient states at that time there was a larger, more painful lump on hip. Patient states he had x-rays and was started on Augmentin x 10 days. States was compliant w/ meds. States mass is smaller than before but branding machine tender when lays in bed. Patient states was told to follow-up with a Dr, as may need surgery. Assessment: Sold, soft/firm skin toned mass (L) gluteus trochanter area approx 10.5 cm circular. Increased warmth and tenderness. No increased erythema. Mild BLE edema feet/ankle area. Pulses (+). Gait steady w/ FWB. FROM Hip. Vital Signs 06/09/19 21:41 Temperature 97.9 F Pulse Rate 85 Respiratory 18 Rate Blood Pressure 126/76 Patient's history of chief complaint is not supported by review of PMx @ [facility]. Plan: Keflex 500 mg PO Q6H X 7 Days Lidocaine patch (L) hip area HS. Patient scheduled for discharge on 06/11.. Patient encouraged to f/u w/ PCP or f/u @ [facility] post discharge. Patient encouraged to continue antibiotics until full dose is complete. Patient verbalized an understanding of discharge directions.
[2019-06-10] MEDS: CEPHALEXIN MONOHYDRATE 500 MG CAPSULE (UD) PO SCH ×2 (05:59→13:24)
[2019-06-10] MEDS: BUPRENORPHINE/NALOXONE 8 MG/2 MG FILM PACKET SL SCH ×2 (05:59→13:24)
[2019-06-10] MEDS ORDERED: LIDOCAINE PATCH REMOVAL MC SCH (10:00)
[2019-06-10] MEDS: NICOTINE 21 MG/24 HOURS TOPICAL PATCH TD SCH (10:08)
[2019-06-10] MEDS: PRENATAL VITAMINS W/ FOLIC ACID TABLET (FP) PO SCH (10:09)
[2019-06-10] MEDS: METHOCARBAMOL 500 MG TABLET PO PRN (10:09)
[2019-06-10] MEDS: LIDOCAINE 5% TOPICAL PATCH TP SCH (10:46)
--- NOTE | 2019-06-10 12:04 | PN ---
S CIWA - CIWA Score Nausea/Vomitin-Mild Nausea/No Vomiting Muscle Tremors: 2 Anxiety: 2 Agitation: 2 Paroxysmal Sweats: 1-Minimal Palms Moist Orientation: 0-Oriented Tacttile Disturbances: 0-None Auditory Disturbances: 0-None Visual Disturbances: 0-None Headache: 0-None Present CIWA-Ar Total Score: 8 [facility] Progress Note (SOAP) Subjective: 34 years old male admitted on 06/06/19 for alcohol withdrawal sx management treated with valium detox regimen slept through the night ate breakfast limited conversation with staff Objective: 06/10/19 12:04 Vital Signs Temperature 95.9 F L 06/10/19 09:18 Pulse Rate 99 H 06/10/19 09:18 Respiratory Rate 18 06/10/19 09:18 Blood Pressure 114/78 06/10/19 09:18 O2 Sat by Pulse Oximetry (%) 06/10/19 12:05 lab see 05/29/19 report Assessment: 06/10/19 12:05 alcohol withdrawal sx Plan: valium detox regimen completed medically observation
--- NOTE | 2019-06-10 12:40 | PN ---
[facility] Progress Note Note: Psychiatric nurse practitioner note: Patient requesting a lower dose of seroquel as he urinated on himself last night. Will d/c seroquel 200mg and will order seroquel 150mg HS.
[2019-06-10] MEDS ORDERED: QUEtiapine FUMARATE 100 MG TABLET (FP) PO SCH (12:41)
[2019-06-10 13:05] VITALS: BP 134/87; PULSE 93; TEMP 96.6
--- NOTE | 2019-06-10 15:28 | DS ---
[facility] Detox Discharge Summary Admission Date: 06/06/19 Discharge Date: 06/10/19 - History Present History: Alcohol Dependence Additional Comments: 34 years old male admitted on 06/06/19 for alcohol withdrawal sx management treated with valium detox regimen estimated discharge date was 06/09/19 due to lack of [facility] availability patient had been kept till [facility] available as per chief hospital administrator patient insists to leave the detox unit today refuses to wait for Tuesday [facility] available patient is alert oriented x 3 steady gait speech clearly coherently strong recommend the patient return to suboxone program for medical mental behavior and psychosocial therapies Pertinent Past History: 34 years old male admitted on 06/06/19 for alcohol withdrawal sx management treated with valium detox regimen patient tolerated well alert oriented x 3 patient is scheduled for routine discharge on 06/11/19 tomorrow patient prefers to be discharged today that he will follow up with [facility] tomorrow - Physical Exam Results Vital Signs: Vital Signs Temperature 96.6 F L 06/10/19 13:05 Pulse Rate 93 H 06/10/19 13:05 Respiratory Rate 18 06/10/19 13:05 Blood Pressure 134/87 06/10/19 13:05 O2 Sat by Pulse Oximetry (%) Pertinent Admission Physical Exam Findings: alcohol withdrawal sx lab see 05/29/19 report - Treatment Hospital Course: Detox Protocol Followed, Detoxed Safely, Responded well, Discharged Condition Good, Rehab Referral Accepted Patient has Accepted a Rehab Referral to: [facility] - Medication Discharge Medications: Ambulatory Orders Buprenorphine/Naloxone [Suboxone 8Mg/2Mg Sl Film -] 1 strip SL TID 05/28/19 - Diagnosis (1) Encounter for monitoring Suboxone maintenance therapy Status: Chronic (2) Alcohol dependence with withdrawal, uncomplicated Status: Acute (3) Nicotine dependence, cigarettes, with withdrawal Status: Acute (4) Substance induced mood disorder Status: Suspected - AMA Did Patient Leave Against Medical Advice: No CIWA Score - CIWA Score Nausea/Vomitin-Mild Nausea/No Vomiting Muscle Tremors: 2 Anxiety: 1-Mildly Anxious Agitation: 1-Slight > Activity Paroxysmal Sweats: 1-Minimal Palms Moist Orientation: 0-Oriented Tacttile Disturbances: 0-None Auditory Disturbances: 0-None Visual Disturbances: 0-None Headache: 0-None Present CIWA-Ar Total Score: 6
== END 2019-06-10 15:40 | disposition home or self-care (01) | DRG 897 ==
LOC: YASAS 15:09 → Y3N 18:44
PROVIDERS: ADMIT Allergy & Immunology; ATTEND Allergy & Immunology
PROC: HZ2ZZZZ Detoxification Services for Substance Abuse Treatment (ICD-10-PCS; principal; 2019-06-06)
DX: F10.230 Alcohol dependence with withdrawal, uncomplicated (principal); F11.20 Opioid dependence, uncomplicated; F19.282 Other psychoactive substance dependence with psychoactive substance-induced sleep disorder; F14.10 Cocaine abuse, uncomplicated; F12.20 Cannabis dependence, uncomplicated; F17.213 Nicotine dependence, cigarettes, with withdrawal; F19.24 Other psychoactive substance dependence with psychoactive substance-induced mood disorder; F43.10 Post-traumatic stress disorder, unspecified; F31.9 Bipolar disorder, unspecified; I10 Essential (primary) hypertension; Z87.828 Personal history of other (healed) physical injury and trauma; Z51.81 Encounter for therapeutic drug level monitoring; Z91.013 Allergy to seafood; Z88.8 Allergy status to other drugs, medicaments and biological substances; Z59.0 Homelessness